=== PATIENT | male | born 1990 | race American Indian/Alaskan Native ===

== ENCOUNTER 2016-12-31 16:36 | Emergency (ER) | payer SELFPAY ==
--- NOTE | 2016-12-31 17:50 | Emergency Department Report ---
Chief Complaint: Psych Stated Complaint: MED REFILL Time Seen by Provider: 12/31/16 17:43 - HPI History of Present Illness: PT states he needs to go into the mental hospital for stabilization. PT states he has been on of his medication for a few days. PT states he is not sleeping or eating. PT states he is having hallucinations. - ROS Review of Systems: + sleep disturbance + appetite change - Exam Vital Signs: Vital Signs 12/31/16 17:45 Temperature 99.2 F Pulse Rate 90 Respiratory 100 H Rate Blood Pressure 142/80 Physical Exam: PT is alert, follows commands no acute distress in triage MSE screening note: Focused history and physical exam performed. Due to findings the following was ordered: labs, mhe ED Disposition for MSE Condition: Stable
[2016-12-31 18:14] LABS: Urine Drugs of Abuse Note Disclamer
[2016-12-31 18:15] LABS: Basophils % (Auto) 0.9 % (0.0-1.8); Eosinophils % (Auto) 1.5 % (0.0-4.3); Hematocrit 42.7 % (35.5-45.6); Hemoglobin 13.9 gm/dl (11.8-15.2); Mean Corpuscular HGB Conc 33 % (32-34); Mean Corpuscular Hemoglobin 29 pg (28-32); Mean Corpuscular Volume 88 fl (84-94); Platelet Count 170 K/mm3 (140-440); Red Blood Count 4.86 M/mm3 (3.65-5.03); Red Cell Distribution Width 14.4 % (13.2-15.2); White Blood Count 5.1 K/mm3 (4.5-11.0)
[2016-12-31 18:27] LABS: Bilirubin,Urine NEG (Negative); Blood,Urine NEG (Negative); Ketones,Urine NEG (Negative); Leukocyte Esterase,Urine NEG (Negative); Nitrite,Urine NEG (Negative); Protein,Urine <15 mg/dL mg/dL (Negative); RBC,Urine < 1.0 /HPF (0.0-6.0); Urobilinogen,Urine < 2.0 mg/dL (<2.0)
[2016-12-31 19:49] LABS: Alanine Aminotransferase 9 units/L (7-56); Albumin 4.6 g/dL (3.9-5); Albumin/Globulin Ratio 1.3 %; Alkaline Phosphatase 54 units/L (35-129); Anion Gap 26 mmol/L; Blood Urea Nitrogen 13 mg/dL (9-20); Calcium 9.7 mg/dL (8.4-10.2); Carbon Dioxide 22 mmol/L (22-30); Chloride 103.4 mmol/L (98-107); Glucose 102 mg/dL (75-100); Potassium 4.2 mmol/L (3.6-5.0); Sodium 147 mmol/L (137-145); Total Protein 8.1 g/dL (6.3-8.2)
--- NOTE | 2016-12-31 21:26 | Emergency Department Report ---
HPI - General Chief Complaint: Psych Time Seen by Provider: 12/31/16 17:43 - HPI HPI: This is a 26-year-old Afro[place] male presents to the emergency department for possible need of medication refill. The patient says that he was unable to find the medications he takes, Zyprexa, Risperdal and Prozac. He then got nervous that he would become subtherapeutic so he came to the hospital for possible need of medication refill. However since that time he has spoken to his sister who was able to tell him where his medications are and he says that he has enough. He just moved here and therefore does not have a current primary care doctor or psychiatrist for follow-up. He denies any suicidal or homicidal ideations, auditory or visual hallucinations. He denies any illicit drug use. ED Past Medical Hx - Past Medical History Previous Medical History?: Yes Hx Hypertension: Yes Hx Psychiatric Treatment: Yes - Surgical History Past Surgical History?: No - Social History Smoking Status: Current Every Day Smoker Substance Use Type: Alcohol ED Review of Systems ROS: Stated complaint: MED REFILL Other details as noted in HPI Comment: All other systems reviewed and negative Constitutional: denies: chills, fever Eyes: denies: eye pain, eye discharge, vision change ENT: denies: ear pain, throat pain Respiratory: denies: cough, shortness of breath, wheezing Cardiovascular: denies: chest pain, palpitations Gastrointestinal: denies: abdominal pain, nausea, diarrhea Genitourinary: denies: urgency, dysuria Musculoskeletal: denies: back pain, joint swelling, arthralgia Skin: denies: rash, lesions Neurological: denies: headache, weakness, paresthesias Psychiatric: denies: auditory hallucinations, visual hallucinations, homicidal thoughts, suicidal thoughts Physical Exam - Physical Exam Vital Signs: Vital Signs 12/31/16 12/31/16 17:45 19:51 Temperature 99.2 F 98.7 F Pulse Rate 90 76 Respiratory 100 H 17 Rate Blood Pressure 142/80 160/113 O2 Sat by Pulse 99 Oximetry Physical Exam: GENERAL: The patient is well-developed well-nourished. HEENT: Normocephalic. Atraumatic. Extraocular motions are intact. Patient has moist mucous membranes. Pupils equal reactive to light bilaterally. NECK: Supple. Trachea is midline. CHEST/LUNGS: Clear to auscultation. There is no respiratory distress noted. HEART/CARDIOVASCULAR: Regular. There is no tachycardia. There is no gallop rub or murmur. ABDOMEN: Abdomen is soft, nontender. Patient has normal bowel sounds. There is no abdominal distention. SKIN: Skin is warm and dry. NEURO: The patient is awake, alert, and oriented. The patient is cooperative. The patient has no focal neurologic deficits. The patient has normal speech and gait. MUSCULOSKELETAL: There is no tenderness or deformity. There is no limitation range of motion. There is no evidence of acute injury. ED Course Vital Signs 12/31/16 12/31/16 17:45 19:51 Temperature 99.2 F 98.7 F Pulse Rate 90 76 Respiratory 100 H 17 Rate Blood Pressure 142/80 160/113 O2 Sat by Pulse 99 Oximetry ED Medical Decision Making - Lab Data Result diagrams: 12/31/16 18:01 12/31/16 18:01 - Medical Decision Making 26-year-old with history of schizophrenia, bipolar disorder and ADHD presents after he thought he lost his medications. He spoke to his sister who was able to tell him where to locate them and he says that he has enough quantity at this time. The patient has no auditory or visual hallucinations. He has no suicidal or homicidal ideations. He is calm and appropriate. He does not appear to be a candidate to be admitted 1013. Crisis therapist saw the patient and agrees. Patient had some hypertension upon triage but it resolved without any intervention. The patient will be discharged home with a referral for [facility] and the [facility]. - Differential Diagnosis schizophrenia, bipolar disorder, depression, substance abuse Critical Care Time: No Critical care attestation.: If time is entered above; I have spent that time in minutes in the direct care of this critically ill patient, excluding procedure time. ED Disposition Clinical Impression: History of schizophrenia, History of bipolar disorder, History of ADHD Hypertension Qualifiers: Hypertension type: essential hypertension Qualified Code(s): I10 - Essential ( primary) hypertension Disposition: DC-01 TO HOME OR SELFCARE Is pt being admited?: No Condition: Stable Instructions: Bipolar Disorder (ED), Schizophrenia (ED), Hypertension (ED) Additional Instructions: Please follow-up with the [facility] regarding your history of bipolar disorder, schizophrenia and ADHD and for future medication refills. I have given a referral for a local primary care clinic, [facility], to follow-up for any primary care needs such as hypertension. Return to the emergency department with any worsening of your symptoms or any acute distress. Referrals: [facility] [Outside] - 3-5 Days [facility] [Outside] - 3-5 Days Time of Disposition: 21:48
[2016-12-31 21:58] VITALS: BP 131/73
== END 2016-12-31 23:26 | disposition home or self-care (01) ==
LOC: ED 16:36 → EEVIPCON 16:36 → ED 23:26
DX: I10 Essential (primary) hypertension (principal); F20.9 Schizophrenia, unspecified; F31.9 Bipolar disorder, unspecified; F90.9 Attention-deficit hyperactivity disorder, unspecified type; F17.200 Nicotine dependence, unspecified, uncomplicated
CPT/HCPCS: 36415; 80053; 80307; 81001; 85025; 99284; G0480; 80320